=== PATIENT | male | born 1955 | race Caucasian/White ===

== ENCOUNTER 2018-09-28 09:01 | Day surgery (SDC) | payer OTHER ==
[~2018-09-28] VITALS: Ht 172.7 cm; Wt 80.1 kg
[2018-09-28] MEDS ORDERED: PHEN64.8 PO (09:34)
[2018-09-28] MEDS ORDERED: PHEN30CA PO (09:34)
[2018-09-28 09:36] VITALS: Ht 172.7 cm; Wt 80.1 kg
[2018-09-28 09:52] VITALS: BP 118/76; PULSE 68; RESP 18
[2018-09-28] MEDS ORDERED: FENTAnyl 50 MCG/ML VIAL ONE (12:11)
[2018-09-28] MEDS ORDERED: MIDAZOLAM 1 MG/ML 2 ML INJ ONE ×2 (12:11)
[2018-09-28 12:28] VITALS: BP 126/68; PULSE 65; RESP 16
[2018-09-28 12:30] VITALS: BP_SYST 68; RESP 18
== END 2018-09-28 14:18 | disposition home or self-care (01) ==
LOC: GIL 09:01
PROVIDERS: ATTEND Internal Medicine Gastroenterology
DX: Z12.11 Encounter for screening for malignant neoplasm of colon (principal); D12.5 Benign neoplasm of sigmoid colon; K64.8 Other hemorrhoids
CPT/HCPCS: 45380; 88305; J2250; J3010